=== PATIENT | female | born 1975 | race African-American/Black ===

== ENCOUNTER 2020-08-06 13:56 | Emergency (ER) | payer OTHER ==
[~2020-08-06] VITALS: Ht 162.6 cm; Wt 100.9 kg
[2020-08-06] MEDS ORDERED: IBUPROFEN 200 MG TAB PO STA (14:38)
[2020-08-06] MEDS ORDERED: IBUPROFEN 400 MG TAB ONE (15:56)
[2020-08-06 17:12] VITALS: BP 129/72
== END 2020-08-06 16:45 | disposition home or self-care (01) ==
LOC: FSED 14:36
DX: S80.01XA Contusion of right knee, initial encounter (principal); S13.4XXA Sprain of ligaments of cervical spine, initial encounter; M54.5 Low back pain; V43.62XA Car passenger injured in collision with other type car in traffic accident, initial encounter; Y92.488 Other paved roadways as the place of occurrence of the external cause
CPT/HCPCS: 72040; 72070; 99283